=== PATIENT | male | born 1990 | race Caucasian/White ===

== ENCOUNTER 2018-07-02 12:41 | Inpatient (IN) ==
--- NOTE | 2018-07-02 12:52 | Emergency Department Note ---
Disposition Clinical Impression: Suicidal ideations Depression Qualifiers: Depression Type: major depressive disorder Major depression recurrence: unspecified whether recurrent Active/Remission status: currently active Major depression episode severity: moderate Qualified Code(s): F32.1 - Major depressive disorder, single episode, moderate Disposition: Admitted As Inpatient Referrals: NONE,PCP [Primary Care Provider] - Time of Disposition: 18:15 General Adult HPI - General Stated complaint: SI Time Seen by Provider: 07/02/18 12:46 Nursing Notes Reviewed: Yes Vital Signs Reviewed: Yes - History of Present Illness HPI Narrative: 28-year-old male was initially evaluated and worked up medically cleared for suicidal ideation. He was transferred from [facility]. Apparently he was transferred to a mental health inpatient clinic there was no formal excepting or misunderstanding about accepting physician the ambulance was asked to return him back to the ER here. Patient is in bed is comfortable no trays been ordered has no complaints at this time patient will be reevaluated by mental health services here will engage with the local outpatient mental health facility in order to see if there is bed availability male who will accept the patient at this time. Patient has been so informed. Patient stable - Related Data Previous Rx's Medication Instructions Recorded BuPROPion XL (24 HR) [Wellbutrin 150 mg PO DAILY 30 Days #30 06/16/18 Xl] tab.er.24h Allergies Allergy/AdvReac Type Severity Reaction Status Date / Time sulfamethoxazole Allergy See Verified 07/01/18 02:30 [From Bactrim] Comments trimethoprim [From Bactrim] Allergy See Verified 07/01/18 02:30 Comments All systems ED: reviewed and negative except as stated. Psychiatric: Reports: anxiety, depression, suicidal thoughts Past Medical History - Past Medical History Attestation: Yes The following information was validated with the patient. Source: patient Medical history: Reports: no medical history Psychiatric history: Reports: depression, other (methamphetamine use D/O) - Social History Smoking Status: Current every day smoker Smokeless Tobacco Status: No Alcohol use: Reports: none Drug use: Reports: methamphetamine Physical Exam - General Limitations: no limitations General appearance: alert, in no apparent distress - Head Head exam: atraumatic, normocephalic - Eye Eye exam: Present: normal appearance, PERRL - ENT ENT exam: normal exam, normal oropharynx - Neck Neck exam: Present: normal inspection, full ROM - Chest Chest inspection: Present: normal inspection - Respiratory Respiratory exam: Present: normal lung sounds bilaterally - Cardiovascular Cardiovascular exam: Present: regular rate, normal rhythm - Abdominal Exam Abdominal exam: Present: soft, Non-Tender - Extremities Exam Extremities exam: Present: normal inspection, full ROM - Expanded Lower Extremity Exam Neurovascular/Tendon exam: Present: normal capillary refill Gait: observed and normal - Back Exam Back exam: Present: normal inspection, full ROM - Neurological Exam Neurological exam: Present: alert, oriented X3 - Psychiatric Psychiatric exam: Present: depressed, anxious Course - Reevaluation(s) Reevaluation #1: We had conversations with her mental health service the agree to have him admitted after we repeat the medical clearance labs which we are in the process of doing I re-completed a pink slip for the patient. Patient resting comfortably. Admission disposition pending. Time: 14:51 Reevaluation #2: Patient's P labs UA and urine tox are reviewed negative her baseline. Patient was evaluated by mental health services. They agreed inpatient admission is warranted. Orders placed for admission patient is ready pink slip. Patient comfortable to be admitted in stable condition to this treatment unit Time: 18:14 Vital Signs Temperature 98.6 F 07/02/18 12:51 Pulse Rate 80 07/02/18 12:51 Respiratory Rate 18 07/02/18 12:51 Blood Pressure 118/78 07/02/18 12:51 O2 Sat by Pulse Oximetry 98 07/02/18 12:51 Temperature 97.6 F 07/02/18 17:39 Pulse Rate 85 07/02/18 17:39 Respiratory Rate 14 07/02/18 17:39 Blood Pressure 134/73 07/02/18 17:39 O2 Sat by Pulse Oximetry 100 07/02/18 17:39 Oxygen Delivery Oxygen Delivery Room Air Medical Decision Making - Lab Data Result diagrams: 07/02/18 14:54 07/02/18 14:54 Lab Results 07/02/18 07/02/18 07/02/18 Range/Units 14:54 14:54 15:00 WBC 5.4 (4.3-11.1) K/mcL RBC 4.74 (4.19-5.50) M/mcL Hgb 14.1 (12.9-16.9) g/dL Hct 41.9 (37.5-50.1) % MCV 88.4 (83.0-100.0) fL MCH 29.7 (28.0-33.3) pg MCHC 33.7 (31.6-35.5) g/dL RDW 13.1 (11.5-14.5) % Plt Count 317 (140-400) K/mcL MPV 8.8 L (9.4-12.4) fL Immature Gran % 0.2 (0-4) % Seg Neutrophils % 45.4 % Lymphocytes % 31.6 % Monocytes % 16.2 % Eosinophils % 5.9 % Basophils % 0.7 % Neutrophils # 2.5 (1.6-8.9) K/mcL Lymphocytes # 1.7 (0.6-4.6) K/mcL Monocytes # 0.9 (0.0-1.3) K/mcL Eosinophils # 0.3 (0.0-0.6) K/mcL Basophils # 0.0 (0.0-0.2) K/mcL Sodium 138 (136-145) mEq/L Potassium 4.1 (3.5-5.1) mEq/L Chloride 102 (98-107) mEq/L Carbon Dioxide 30 H (23-29) mEq/L BUN 13 (6-20) mg/dL Creatinine 0.60 L (0.70-1.30) mg/dL Est GFR ( Amer) > 60 (> 60) Est GFR (Non-Af Amer) > 60 (> 60) BUN/Creatinine Ratio 22 (6-26) Glucose 88 (70-105) mg/dL Calculated Osmolality 286 (280-300) Calcium 9.0 (8.6-10.3) mg/dL Urine Color Yellow (Yellow) Urine Clarity Clear (Clear) Urine pH 6.5 (5.0-8.0) pH Units Ur Specific [place]gram 1.009 L (1.010-1.025) Urine Protein Negative (Neg-Trace) mg/dL Urine Glucose (UA) Normal (Normal) mg/dL Urine Ketones Negative (Negative) mg/dL Urine Blood Negative (Negative) Urine Nitrite Negative (Negative) Urine Bilirubin Negative (Negative) Urine Urobilinogen Normal (Normal) mg/dL Ur Leukocyte Esterase Negative (Negative) Salicylates < 2.5 L (15.0-30.0) mg/dL Urine Opiates Screen (Tqlzeh=133) ng/mL Acetaminophen < 10 L (10-20) mcg/mL Ur Barbiturates Screen (Dfucry=591) ng/mL Ur Phencyclidine Scrn (Cutoff=25) ng/mL Ur Amphetamines Screen (Fhrgoz=9720) ng/mL U Benzodiazepines Scrn (Nkwpwe=947) ng/mL Urine Cocaine Screen (Cutoff= 300) ng/mL U Marijuana (THC) Screen (Cutoff = 50) ng/mL Ur Drug Screen Interp Ethyl Alcohol < 10 (Less than 10) mg/dL 07/02/18 Range/Units 15:05 WBC (4.3-11.1) K/mcL RBC (4.19-5.50) M/mcL Hgb (12.9-16.9) g/dL Hct (37.5-50.1) % MCV (83.0-100.0) fL MCH (28.0-33.3) pg MCHC (31.6-35.5) g/dL RDW (11.5-14.5) % Plt Count (140-400) K/mcL MPV (9.4-12.4) fL Immature Gran % (0-4) % Seg Neutrophils % % Lymphocytes % % Monocytes % % Eosinophils % % Basophils % % Neutrophils # (1.6-8.9) K/mcL Lymphocytes # (0.6-4.6) K/mcL Monocytes # (0.0-1.3) K/mcL Eosinophils # (0.0-0.6) K/mcL Basophils # (0.0-0.2) K/mcL Sodium (136-145) mEq/L Potassium (3.5-5.1) mEq/L Chloride (98-107) mEq/L Carbon Dioxide (23-29) mEq/L BUN (6-20) mg/dL Creatinine (0.70-1.30) mg/dL Est GFR ( Amer) (> 60) Est GFR (Non-Af Amer) (> 60) BUN/Creatinine Ratio (6-26) Glucose (70-105) mg/dL Calculated Osmolality (280-300) Calcium (8.6-10.3) mg/dL Urine Color (Yellow) Urine Clarity (Clear) Urine pH (5.0-8.0) pH Units Ur Specific Ingram (1.010-1.025) Urine Protein (Neg-Trace) mg/dL Urine Glucose (UA) (Normal) mg/dL Urine Ketones (Negative) mg/dL Urine Blood (Negative) Urine Nitrite (Negative) Urine Bilirubin (Negative) Urine Urobilinogen (Normal) mg/dL Ur Leukocyte Esterase (Negative) Salicylates (15.0-30.0) mg/dL Urine Opiates Screen Negative (Ajdodl=546) ng/mL Acetaminophen (10-20) mcg/mL Ur Barbiturates Screen Negative (Rdgjfp=814) ng/mL Ur Phencyclidine Scrn Negative (Cutoff=25) ng/mL Ur Amphetamines Screen Negative (Xecpik=8810) ng/mL U Benzodiazepines Scrn Negative (Tzbctp=985) ng/mL Urine Cocaine Screen Negative (Cutoff= 300) ng/mL U Marijuana (THC) Screen Negative (Cutoff = 50) ng/mL Ur Drug Screen Interp See Below Ethyl Alcohol (Less than 10) mg/dL
[2018-07-02 15:18] LABS: Bilirubin,Urine Negative (Negative); Blood,Urine Negative (Negative); Clarity,Urine Clear (Clear); Color,Urine Yellow (Yellow); Glucose,Urine (UA) Normal (Normal); Ketones,Urine Negative (Negative); Leukocyte Esterase,Urine Negative (Negative); Nitrite,Urine Negative (Negative); PH,Urine 6.5 pH Units (5.0-8.0); Protein,Urine Negative (Neg-Trace); Specific Gravity,Urine 1.009 (1.010-1.025); Urobilinogen,Urine Normal (Normal)
[2018-07-02 15:18] LABS: Basophils % 0.7 %; Eosinophils # 0.3 K/mcL (0.0-0.6); Eosinophils % 5.9 %; Hematocrit 41.9 % (37.5-50.1); Hemoglobin 14.1 g/dL (12.9-16.9); Immature Granulocytes % 0.2 % (0-4); Lymphocytes # 1.7 K/mcL (0.6-4.6); Lymphocytes % 31.6 %; Mean Corpuscular HGB Conc 33.7 g/dL (31.6-35.5); Mean Corpuscular Hemoglobin 29.7 pg (28.0-33.3); Mean Corpuscular Volume 88.4 fL (83.0-100.0); Mean Platelet Volume 8.8 fL (9.4-12.4); Monocytes # 0.9 K/mcL (0.0-1.3); Monocytes % 16.2 %; Neutrophils # 2.5 K/mcL (1.6-8.9); Platelet Count 317 K/mcL (140-400); Red Blood Count 4.74 M/mcL (4.19-5.50); Red Cell Distribution Width 13.1 % (11.5-14.5); Segmented Neutrophils % 45.4 %
[2018-07-02 15:26] LABS: Amphetamine Screen,Urine Negative ng/mL (Cutoff=1000); Barbiturate Screen,Urine Negative ng/mL (Cutoff=200); Benzodiazepines Screen,Urine Negative ng/mL (Cutoff=200); Cannabinoid Screen,Urine Negative ng/mL (Cutoff = 50); Cocaine Screen,Urine Negative ng/mL (Cutoff= 300); Opiate Screen,Urine Negative ng/mL (Cutoff=300); Phencyclidine Screen,Urine Negative ng/mL (Cutoff=25)
[2018-07-02 15:34] LABS: Acetaminophen < 10 mcg/mL (10-20); BUN/Creatinine Ratio 22 (6-26); Blood Urea Nitrogen 13 mg/dL (6-20); Carbon Dioxide 30 mEq/L (23-29); Chloride 102 mEq/L (98-107); Ethanol < 10 mg/dL (Less than 10); Glucose 88 mg/dL (70-105); Osmolality,Calculated 286 (280-300); Potassium 4.1 mEq/L (3.5-5.1); Salicylate < 2.5 mg/dL (15.0-30.0); Sodium 138 mEq/L (136-145); eGFR For Non-African Americans > 60 (> 60)
[2018-07-02] MEDS ORDERED: *HR* LORazepam 2 MG/ML VIAL IM PRN (20:17)
[2018-07-02] MEDS ORDERED: Ibuprofen 400 MG TABLET PO PRN (20:17)
[2018-07-02] MEDS ORDERED: MOM Conc 10 ML UD.LIQ PO PRN (20:17)
[2018-07-02] MEDS ORDERED: *HR* LORazepam 1 MG TABLET PO PRN (20:17)
[2018-07-02] MEDS ORDERED: Haloperidol Lactate 5 MG/ML VIAL IM PRN (20:17)
[2018-07-02] MEDS ORDERED: Mag Hydrox/Al Hydrox/Simeth 30 ML UDC PO PRN (20:17)
[2018-07-02] MEDS: hydrOXYzine pamoate 25 MG CAPSULE PO PRN (21:14)
[2018-07-02] MEDS: traZODone 50 MG TABLET PO PRN (21:14)
[2018-07-02] MEDS ORDERED: Nicotine 21 MG PATCH.TD24 TD ONE (21:45)
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
[2018-07-03] MEDS: Loratadine 10 MG TABLET PO SCH (09:33)
[2018-07-03] MEDS: Venlafaxine XR (24 HR) 75 MG CAP.ER.24H PO SCH (09:33)
[2018-07-03] MEDS: Nicotine 21 MG PATCH.TD24 TD SCH (09:34)
[2018-07-03] MEDS ORDERED: Nicotine 21 MG PATCH.TD24 TD ONE (20:21)
[2018-07-03] MEDS: hydrOXYzine pamoate 25 MG CAPSULE PO PRN (20:25)
[2018-07-03] MEDS: traZODone 50 MG TABLET PO PRN (20:26)
[2018-07-04] MEDS: Nicotine 21 MG PATCH.TD24 TD SCH (08:07)
[2018-07-04] MEDS: Venlafaxine XR (24 HR) 75 MG CAP.ER.24H PO SCH (08:07)
[2018-07-04] MEDS: Loratadine 10 MG TABLET PO SCH (08:07)
--- NOTE | 2018-07-04 10:59 | Psychiatry Progress Note ---
Date of Encounter: 07/04/18 Time of Encounter: 10:57 Subjective Interval history: Patient is doing well. He got news from his mother that he cannot go back to live with his girlfriend and she is staying with her parents and he will have to stay with his grandparents and he is okay with this information. She denies suicidal or homicidal thoughts ideations or plans his future oriented toward getting a job she reports sleep and appetite and interests are good. He is tolerating the Effexor and has been taking it he said up until the last 1-2 days before his admission. He is open to increasing the dose. Review of Systems Psychiatric: Reports: depression. Denies: suicidal ideation, hopelessness Results - Vital Signs Vital Signs: Temp Pulse Resp BP Pulse Ox 97.6 F 88 18 116/77 98 07/04/18 08:17 07/04/18 08:17 07/04/18 08:17 07/04/18 08:17 07/04/18 08:17 Assessment and Plan (1) Depression Current visit: Yes Status: Acute Additional Plan: Increase Effexor XR to 150 mg by mouth every morning. His 72 hour hold is up tomorrow and at this point he is not meeting chromic criteria so unless something changes I will likely discharge him tomorrow. Risks, benefits, side effects, alternatives discussed w/pt: Yes Patient agreeable to treatment: Yes Qualifiers: Depression Type: major depressive disorder Major depression recurrence: un specified whether recurrent Active/Remission status: currently active Major depression episode severity: moderate Qualified Code(s): F32.1 - Major depressive disorder, single episode, moderate Consult Discharge Plan - Plan Referrals: Rosa Shanks [facility] [Outside] ([facility] Counselor - Chao Mitchell CNP - Radha Pineda) Psychiatry Exam - Constitutional Vitals: Temp Pulse Resp BP Pulse Ox 97.6 F 88 18 116/77 98 07/04/18 08:17 07/04/18 08:17 07/04/18 08:17 07/04/18 08:17 07/04/18 08:17 General appearance: age & developmentally appropriate, well-groomed, well- nourished - Musculoskeletal Gait: normal Station: relaxed Strength & Tone: normal for patient - Psychiatric Patient Orientation: Yes Person, Yes Time, Yes Place Level of alertness: Alert Behavior: calm, cooperative, withdrawn Psychomotor activity: Normal Eye Contact: Maintains Eye Contact Mood Description: Euthymic/stable Affect description: congruent with mood, full range Speech Volume: Normal Speech pattern: normal rate, normal rhythm, normal tone, fluent, spontaneous Language & Vocabulary: consistent with education Thought Process: Linear, Goal Oriented Thought Content: No Suicidal ideation, No Homicidal ideation, No Overt delusions Perceptual Disturbances: No Auditory hallucinations, No Visual hallucinations Attention Span Ability: Capable of Focused Attention Memory Description: Grossly Intact Patient Reliability: Reliable Historian Fund of knowledge: Yes abstraction ability, Yes aware of current events Intelligence Estimate: Average Judgment: Limited Insight: Partial
[2018-07-04] MEDS: hydrOXYzine pamoate 25 MG CAPSULE PO PRN (20:36)
[2018-07-04] MEDS: traZODone 50 MG TABLET PO PRN (20:36)
[2018-07-05] MEDS ORDERED: Venlafaxine XR (24 HR) 150 MG CAP.ER.24H PO SCH (09:00)
[2018-07-05] MEDS: Loratadine 10 MG TABLET PO SCH (09:22)
[2018-07-05] MEDS: Nicotine 21 MG PATCH.TD24 TD SCH (09:23)
[2018-07-05 09:53] VITALS: BP 121/85
--- NOTE | 2018-07-05 10:14 | Discharge Summary ---
Date of Encounter: 07/05/18 Time of Encounter: 10:12 Diagnosis - Discharge Diagnosis (1) Depression Priority: Primary Status: Acute Qualifiers: Depression Type: major depressive disorder Major depression recurrence: unspecified whether recurrent Active/Remission status: currently active Major depression episode severity: moderate Qualified Code(s): F32.1 - Major depressive disorder, single episode, moderate (2) Methamphetamine use disorder, severe Priority: Secondary Status: Acute Medications - Discharge Medications Prescriptions: traZODone [TraZODone] 50 mg PO HS PRN #30 tablet PRN Reason: Insomnia Venlafaxine XR (24 HR) [Effexor Xr] 150 mg PO DAILY #30 cap.er.24h HydrOXYzine Pamoate [Vistaril] 50 mg PO TID PRN 07/02/18 [History] Loratadine [Allergy Relief] 10 mg PO DAILY 07/02/18 [History] Venlafaxine XR (24 HR) [Effexor Xr] 150 mg PO DAILY #30 cap.er.24h 07/05/18 [Rx] traZODone [TraZODone] 50 mg PO HS PRN #30 tablet 07/05/18 [Rx] Allergy/AdvReac Type Severity Reaction Status Date / Time sulfamethoxazole Allergy See Verified 07/01/18 02:30 [From Bactrim] Comments trimethoprim [From Bactrim] Allergy See Verified 07/01/18 02:30 Comments Results Procedures and tests throughout hospitalization: Completed Lab Orders Category Date Time Status Acetaminophen Stat Lab 07/02/18 14:54 Completed Basic Metabolic Panel Stat Lab 07/02/18 14:54 Completed Complete Blood Count [HEME] Stat Lab 07/02/18 14:54 Completed Drug Screen, Urine [UCHEM] Stat Lab 07/02/18 15:05 Completed Ethanol Stat Lab 07/02/18 14:54 Completed Salicylate Stat Lab 07/02/18 14:54 Completed Urinalysis reflex Microscopic [URIN] Stat Lab 07/02/18 15:00 Completed Provider Date of admission: 07/02/18 19:00 Primary care physician: PCP NONE Discharging clinician: Joan Silva Psychiatry Exam - Constitutional Vitals: Temp Pulse Resp BP Pulse Ox 98.5 F 97 16 121/85 99 07/05/18 09:00 07/05/18 09:00 07/05/18 09:00 07/05/18 09:00 07/05/18 09:00 Additional observations: Patient is alert and oriented [address] time and situation, muscle tone grossly intact, speech normal limits for rhythm, rate, content and volume. Muscle tone is normal for patient. Grooming and hygiene are appropriate and eye contact is maintained appropriately. The patient appears age appropriate. Behavior is cooperative. Thought content is negative for suicidal or homicidal thoughts ideations or plans. There are no hallucinations or delusions. Mood is good and affect is reactive, consistent and congruent. Thought process is linear, logical, goal oriented and coherent thought. Memory is intact to recent and remote as the patient is able to recall several items after a delay and can consistently recall childhood information. Language and vocabulary are consistent with education and intelligence is estimated to be average based on education and general fund of information. Concentration and attention are sustained and appropriate. Insight and judgment are intact as the patient agrees with her diagnosis and the need for ongoing mental health treatment. Hospital Course Hospital course: Mr. Estrada is a 28 year old male who was admitted for suicidal ideation and depression. He denied these symptoms as soon as he got to the unit and was cooperative and calm. His Effexor was titrated up to address his depressive symptoms.Patient was educated of her diagnosis and the risk-benefit side effects of this alternative treatment options and was monitored for responsiveness and side effects. Mood anxiety sleep and appetite interest improved as did future orientation. Self-harm thoughts subsided, thinking cleared, psychosis resolved, and mood stabilized. Patient was able to attend both individual and group therapy sessions as well as meeting with the psychiatrist daily and urged to discuss any medication or treatment issues or other concerns. The patient was educated primarily by verbal means about their diagnosis and manifestations in their life. The option for treatment including group and individual therapy programming was offered to the patient in the use of medications with all their potential risks, benefits, and side effects were discussed with the patient at length. The patient was given the opportunity to ask questions and was noted to participate in the treatment in the planning process. The patient felt ready and eager to be discharged from the inpatient psychiatric unit to continue on with treatment as an outpatient. The patient agreed that is they were safe for this disposition. The patient was considered to be able to participate in informed consent and decision making with respect to medical, legal, and financial issues of the time of discharge. At the time of discharge the patient adamantly denied any concerns for lethality including suicidal or homicidal thoughts ideations or plans and was future oriented toward ongoing mental health care, medical follow-up and sobriety. Time spent discussing smoking cessation with patient: 3 to 10 minutes Does patient wish to continue nicotine replacement upon disc: No - Time Spent with Patient Total time spent providing and/or coordinating discharge services: Less than 30 minutes Specific discharge activities: Interval history reviewed. Available labs reviewed . Psychotherapy provided. Patient had an opportunity to ask questions and address concerns. Patient was in agreement with the treatment plan. The risks benefits and side effects of medications were discussed with the patient, including alternatives and treatment. The patient was educated on the abstaining from any alcohol or illicit substances, following up with all scheduled appointments, and taking all medications as prescribed. The patient was educated on 90 meetings in 90 days and to find a sponsor. Assessment and Plan - Patient/Caregiver Discharge Instructions Activity: resume usual activities as tolerated Diet: regular diet Additional Instructions: Continue current medications. Follow up with outpatient mental health. Encourage continued therapy in a group or individual setting. The patient was discharged to home. - Follow up Plan Follow up with: Rosa Shanks [facility] [Outside] - 07/12/18 11:00 am ([facility] Counselor - Fernando on July 12 at 11:00. [facility] [employer] - Radha Pineda CNP on August 02 at 10:30.) Functional capacity at discharge: independent ambulation Overall status at discharge: Stable Disposition: Home, Self-Care Quality - Multiple Antipsychotics Patient discharged on 2 or more antipsychotic medications: No Procedures - Procedures Procedures: Medication Management, Crisis Stabilization, Supportive Therapy, Group Therapy, Psychoeducational Therapy
== END 2018-07-05 12:30 | disposition home or self-care (01) | DRG 751 ==
LOC: EMEROOARM 12:41 → 1ANU 19:00
PROVIDERS: ADMIT Psychiatry & Neurology Psychiatry; ATTEND Psychiatry & Neurology Psychiatry